=== PATIENT | male | born 1985 | race Caucasian/White ===

== ENCOUNTER 2018-02-18 23:17 | Emergency (ER) | payer OTHER ==
[~2018-02-18] VITALS: Ht 175.3 cm; Wt 83.5 kg
[2018-02-18 23:20] VITALS: BP 140/75
--- NOTE | 2018-02-18 23:23 | NUR ---
Patient ambulated to bed 11. RN evaluating patient at bedside.
--- NOTE | 2018-02-18 23:25 | NUR ---
PT PRESENTS TO ED WITH C/O L EAR ACHE X 1 WEEK. NO TRAUMA OR DEFORMITY. NO HEARING LOSS. PT PLACED INTO BED, PENDING MD PARKER. PMH--DENIES RX--DENIES
--- NOTE | 2018-02-18 23:26 | NUR ---
Dr. Cha evaluating patient at bedside.
[2018-02-18 23:43] VITALS: BP 140/75
--- NOTE | 2018-02-18 23:43 | NUR ---
Patient discharged with v/s stable. Written and verbal after care instructions given and explained. Patient alert, oriented and verbalized understanding of instructions. Ambulatory with steady gait. All questions addressed prior to discharge. ID band removed. Patient advised to follow up with PMD. Rx of AUGMETIN given. Patient educated on indication of medication including possible reaction and side effects. Opportunity to ask questions provided and answered.
== END 2018-02-18 23:43 | disposition home or self-care (01) ==
LOC: MED 23:17
DX: H66.92 Otitis media, unspecified, left ear (principal); H60.92 Unspecified otitis externa, left ear
CPT/HCPCS: 99283